=== PATIENT | female | born 1990 | race African-American/Black ===

== ENCOUNTER 2016-05-10 15:41 | Emergency (ER) | payer OTHER ==
[~2016-05-10] VITALS: Ht 157.5 cm; Wt 62.0 kg
[~2016-05-10 15:41] MED LIST: CEFT500T PO; EC-N500T7 PO; ZOFR4TAB3 SL
[2016-05-10 15:44] VITALS: BP 123/78; PULSE 90; RESP 24; TEMP 98.1; O2SAT 100
--- NOTE | 2016-05-10 16:45 | PD ---
HPI Chief Complaint: Abdominal Pain Time Seen by Provider: 16:45 Travel History International Travel<30 days: No Contact w/Intl Traveler<30days: No Traveled to known affect area: No History of Present Illness HPI 26 year-old female presents to the emergency department for evaluation right lower abdominal pain. Pain is a 10 out of 10, constant, sharp, stabbing. Patient states that she has had associated nausea, vomiting, diarrhea. She states she is only comfortable balled up in a position. Is concerned that this may be her appendix. Subjective fever and chills. Denies any urinary symptoms. Denies any chance of . Denies any other symptoms at this time. PFSH Past Medical History Anemia: Yes Bipolar Disorder: Yes Diminished Hearing: No Headaches: Yes Musculoskeletal: Yes (LEFT HUMERUS FRACTURE IN JUNE 2008) Immunizations Current: No Migraines: Yes Schizophrenia: Yes ?: Not LMP: 04/19/16 : 7 Para: 5 Miscarriage: 2 Tubal Ligation: Yes Past Surgical History Section: Yes Social History Alcohol Use: Yes (OCC) Tobacco Use: Yes (/2 PPD) Substance Use: Yes (marijuana) Allergies-Medications (Allergen,Severity, Reaction): Coded Allergies: Darvocet-N 100 (Verified Allergy, Severe, RASH, 01/10/16) Penicillin (Verified Allergy, Severe, RASH, 01/10/16) Percocet (Verified Allergy, Severe, RASH, 01/10/16) Pontocaine (Verified Allergy, Severe, NOVOCAINE -SPECIFIC, 01/10/16) Novocain (Verified Allergy, Unknown, 01/10/16) Uncoded Allergies: NOVOCAINE (Allergy, Severe, RASH, 01/27/08) Reported Meds & Prescriptions Reported Meds & Active Scripts Active Zofran ODT (Ondansetron HCl) 4 Mg Tab 4 Mg SL Q6H PRN FOR NAUSEA/VOMITING Ceftin (Cefuroxime Axetil) 500 Mg Tab 500 Mg PO BID 10 Days Naprosyn-Ec (Naproxen) 500 Mg Tab 500 Mg PO BID PRN Review of Systems Except as stated in HPI: all other systems reviewed are Neg Physical Exam Narrative GENERAL: Well-nourished female patient, balled up in a position, in no acute distress SKIN: Warm and dry. HEAD: Atraumatic. Normocephalic. EYES: Pupils equal and round. No scleral icterus. No injection or drainage. ENT: No nasal bleeding or discharge. Mucous membranes pink and moist. NECK: Trachea midline. No JVD. CARDIOVASCULAR: Regular rate and rhythm. No murmur appreciated. RESPIRATORY: No accessory muscle use. Clear to auscultation. Breath sounds equal bilaterally. GASTROINTESTINAL: Abdominal exam is limited due to patient not willing to lay flat on her back in a supine position. It does not appear distended. There is no guarding or rebound tenderness. There is tenderness elicited palpation in the right lower quadrant but again this is a limited assessment. Hepatic and splenic margins not palpable. MUSCULOSKELETAL: No obvious deformities. No clubbing. No cyanosis. No edema. NEUROLOGICAL: Awake and alert. No obvious cranial nerve deficits. Motor grossly within normal limits. Normal speech. PSYCHIATRIC: Appropriate mood and affect; insight and judgment normal. Data Data Last Documented VS Vital Signs Date Time Temp Pulse Resp B/P Pulse Ox O2 Delivery O2 Flow Rate FiO2 05/10/16 15:44 98.1 90 24 123/78 100 Room Air Orders Basic Metabolic Panel (Bmp) (05/10/16 16:44) Complete Blood Count With Diff (05/10/16 16:44) Lipase (05/10/16 16:44) Prothrombin Time / Inr (Pt) (05/10/16 16:44) Act Partial Throm Time (Ptt) (05/10/16 16:44) Urinalysis - C+S If Indicated (05/10/16 16:44) Ed Urine Pregnancytest Poc (05/10/16 16:44) Urine Culture (05/10/16 16:51) Labs Laboratory Tests Test 05/10/16 16:51 White Blood Count 8.4 TH/MM3 Red Blood Count 3.81 MIL/MM3 Hemoglobin 10.4 GM/DL Hematocrit 32.0 % Mean Corpuscular Volume 84.0 FL Mean Corpuscular Hemoglobin 27.4 PG Mean Corpuscular Hemoglobin 32.7 % Concent Red Cell Distribution Width 17.1 % Platelet Count 287 TH/MM3 Mean Platelet Volume 8.1 FL Neutrophils (%) (Auto) 63.1 % Lymphocytes (%) (Auto) 24.5 % Monocytes (%) (Auto) 9.3 % Eosinophils (%) (Auto) 2.2 % Basophils (%) (Auto) 0.9 % Neutrophils # (Auto) 5.3 TH/MM3 Lymphocytes # (Auto) 2.1 TH/MM3 Monocytes # (Auto) 0.8 TH/MM3 Eosinophils # (Auto) 0.2 TH/MM3 Basophils # (Auto) 0.1 TH/MM3 CBC Comment DIFF FINAL Differential Comment Prothrombin Time 11.1 SEC Prothromb Time International 1.0 RATIO Ratio Activated Partial 27.8 SEC Thromboplast Time Urine Color YELLOW Urine Turbidity HAZY Urine pH 7.5 Urine Specific [place] 1.013 Urine Protein 100 mg/dL Urine Glucose (UA) NEG mg/dL Urine Ketones NEG mg/dL Urine Occult Blood TRACE Urine Nitrite NEG Urine Bilirubin NEG Urine Urobilinogen 4.0 MG/DL Urine Leukocyte Esterase LARGE Urine RBC 6 /hpf Urine WBC 114 /hpf Urine WBC Clumps RARE Urine Squamous Epithelial 2 /hpf Cells Urine Bacteria RARE /hpf Urine Hyaline Casts 1 /lpf Urine Mucus FEW /lpf Microscopic Urinalysis Comment CULTURE INDICATED Sodium Level 138 MEQ/L Potassium Level 4.1 MEQ/L Chloride Level 105 MEQ/L Carbon Dioxide Level 27.4 MEQ/L Anion Gap 6 MEQ/L Blood Urea Nitrogen 9 MG/DL Creatinine 0.87 MG/DL Estimat Glomerular Filtration 94 ML/MIN Rate Random Glucose 80 MG/DL Calcium Level 9.2 MG/DL Lipase 193 U/L [facility] Medical Decision Making Medical Screen Exam Complete: Yes Emergency Medical Condition: Yes Medical Record Reviewed: Yes Differential Diagnosis Appendicitis versus colitis versus gastroenteritis versus UTI versus ectopic versus gestational versus ovarian cyst Narrative Course 26-year-old female presents to emergency department for evaluation. Patient appears without distress, however she is only comfortable lying in a position. Workup was initiated in triage. Once a medical bed becomes available , patient will be transferred and care assumed by the provider. 1712 patient is verbally aggressive out in triage towards staff and security. She tears off her wristband and leaves the emergency department. Workup has already been initiated and the patient has been seen by me prior to this. The patient at this time has eloped. Diagnosis Primary Impression: Abdominal pain Qualified Code: R10.31 - Right lower quadrant abdominal pain Disposition: 07 AGAINST MEDICAL ADVICE Condition: Stable Adriana Stiles JON May 10, 2016 16:45
[2016-05-10 17:20] LABS: BACTERIA, URINE RARE /hpf; BLOOD, URINE TRACE (NEG); COMMENT (UR) CULTURE INDICATED; CULTURE IF INDICATED CULTURE INDICATED; GLUCOSE,URINE NEG (NEG); HYALINE CAST, URINE 1 /lpf (RARE); KETONE, URINE NEG (NEG); MUCUS URINE FEW /lpf (OCC); NITRITE,URINE NEG (NEG); PH, URINE 7.5 (5.0-8.5); SQUAMOUS EPITHELIAL CELL URINE 2 /hpf (0-5); URINE COLOR YELLOW (YELLW/STRAW)
[2016-05-10 17:22] LABS: AUTOMATED NEUTROPHIL # 5.3 TH/MM3 (1.8-7.7); BASOPHIL # 0.1 TH/MM3 (0-0.2); BASOPHIL % 0.9 % (0.0-2.0); EOSINOPHIL # 0.2 TH/MM3 (0-0.4); EOSINOPHIL % 2.2 % (0.0-4.0); HEMO FLAGS DIFF FINAL; LYMPH % 24.5 % (9.0-44.0); LYMPHOCYTE # 2.1 TH/MM3 (1.0-4.8); MEAN CORPUSCULAR HEMOGLOBIN 27.4 PG (27.0-34.0); MEAN CORPUSCULAR HGB CONC 32.7 % (32.0-36.0); MONO % 9.3 % (0.0-8.0); NEUT % 63.1 % (16.0-70.0); PLATELET COUNT 287 TH/MM3 (150-450); RED BLOOD COUNT 3.81 MIL/MM3 (4.00-5.30); RED CELL DISTRIBUTION WIDTH 17.1 % (11.6-17.2); WHITE BLOOD COUNT 8.4 TH/MM3 (4.0-11.0)
[2016-05-10 17:38] LABS: BICARBONATE 27.4 MEQ/L (21.0-32.0); POTASSIUM 4.1 MEQ/L (3.5-5.1)
[2016-05-10 17:44] LABS: APTT (PATIENT) 27.8 SEC (24.3-30.1); PROTHROMBIN TIME - PATIENT 11.1 SEC (9.8-11.6)
== END 2016-05-10 17:13 | disposition left against medical advice (07) ==
LOC: NETRI 17:00
DX: R10.31 Right lower quadrant pain (principal); N39.0 Urinary tract infection, site not specified; B96.20 Unspecified Escherichia coli [E. coli] as the cause of diseases classified elsewhere
CPT/HCPCS: 80048; 81001; 83690; 85025; 85610; 85730; 87077; 87086; 87186; 99283

== ENCOUNTER 2016-11-13 08:42 | Emergency (ER) | payer OTHER ==
[2016-11-13 08:44] VITALS: BP 138/89; PULSE 78; RESP 16; TEMP 98; O2SAT 99
--- NOTE | 2016-11-13 09:36 | PD ---
HPI Chief Complaint: Oral / Dental Pain or Problem Time Seen by Provider: 09:27 Travel History International Travel<30 days: No Contact w/Intl Traveler<30days: No Traveled to known affect area: No History of Present Illness HPI 26-year-old female presents to the emergency department requesting pain medication and evaluation of her mouth after having 4 teeth extracted on Sunday. She has a follow-up appointment on Sunday with her dentist. She called her dentist telling him that she was in pain and needed a refill on pain medications and he told her to come to the emergency department. Was taking Lortab for pain but ran out of medication. Says she has ibuprofen and has been taking it but is not working. She is currently taking clindamycin. Denies fever, vomiting. Says there is a small piece of the tooth that is still in her gum and she wants it taken out. Has no other medical complaints. Symptoms are mild in severity. No other modifying factors or associated signs and symptoms. History Social History Alcohol Use: Yes (OCC) Tobacco Use: Yes (1/2 PPD) Allergies-Medications (Allergen,Severity, Reaction): Coded Allergies: oxycodone (Unverified Allergy, Severe, RASH, 11/13/16) penicillin G (Unverified Allergy, Severe, RASH, 11/13/16) propoxyphene (Unverified Allergy, Severe, RASH, 11/13/16) tetracaine (Unverified Allergy, Severe, NOVOCAINE -SPECIFIC, 11/13/16) procaine (Unverified Allergy, Unknown, 11/13/16) Uncoded Allergies: NOVOCAINE (Allergy, Severe, RASH, 01/27/08) Reported Meds & Prescriptions Reported Meds & Active Scripts Active No Active Prescriptions or Reported Medications Review of Systems Except as stated in HPI: all other systems reviewed are Neg Physical Exam Narrative GENERAL: Well-nourished, well-developed black female patient, in no acute distress; afebrile, nontoxic-appearing SKIN: Warm and dry. HEAD: Atraumatic. Normocephalic. No facial edema, erythema, tenderness on palpation. No lymphadenopathy. EYES: Pupils equal and round. No scleral icterus. No injection or drainage. ENT: Mucosa pink and moist. Airway patent. MOUTH: Mucous membranes moist, no lesions, tongue and gums appear normal. Left lower gingiva s/p tooth extraction of #20, 19, 18, 17 is mildly edematous without erythema, drainage. No signs of infection. NECK: Trachea midline. No lymphadenopathy. CARDIOVASCULAR: Regular rate. RESPIRATORY: No accessory muscle use. GASTROINTESTINAL: Flat. MUSCULOSKELETAL: No obvious deformities. No clubbing. No cyanosis. No edema. NEUROLOGICAL: Awake and alert. Oriented 3. No obvious cranial nerve deficits. Motor grossly within normal limits. Normal speech. PSYCHIATRIC: Appropriate mood and affect; insight and judgment normal. Data Data Last Documented VS Vital Signs Date Time Temp Pulse Resp B/P (MAP) Pulse Ox O2 Delivery O2 Flow Rate FiO2 11/13/16 08:44 98.0 78 16 138/89 (105) 99 MDM Medical Screen Exam Complete: Yes Emergency Medical Condition: No Differential Diagnosis Medication refill Narrative Course 18-year-old female requesting refill on Lortab after having 4 teeth extracted on Sunday. She has follow-up appointment with her dentist on Sunday. Her dentist told her come to the ER for refill on pain medications. She is currently on clindamycin. Patient is afebrile and nontoxic-appearing. Extraction site with no signs of infection. Insect patient to follow up with dentist. Vital signs are stable and the patient is stable for outpatient follow -up and treatment. The patient has no urgent or emergent medical complaints. There is no emergent or urgent medical need at this time. I instructed the patient to follow up with their primary care provider. A medical screening exam was performed: At the time of evaluation the presenting medical condition was determined not to be of an emergent nature. The patient was given the option of receiving additional care, but declined. Patient was given options for additional community resources from which to obtain care. The Patient Has Been advised to seek medical attention for their presenting complaint. The patient has been advised to return to the ER at any time if an emergent condition develops. Primary Impression: Encounter for medical screening examination Scripts No Active Prescriptions or Reported Meds Condition: Stable Aracely Garza Nov 13, 2016 09:36
== END 2016-11-13 09:41 | disposition left against medical advice (07) ==
LOC: NEPK 08:42
DX: K08.89 Other specified disorders of teeth and supporting structures (principal); F17.200 Nicotine dependence, unspecified, uncomplicated
CPT/HCPCS: 99281

== ENCOUNTER 2016-11-15 16:00 | Inpatient (IN) | payer OTHER ==
[~2016-11-15] VITALS: Ht 160 cm; Wt 68.0 kg
[2016-11-15 16:27] VITALS: BP 126/86; PULSE 75; RESP 16; TEMP 98.3; O2SAT 100
[2016-11-15 16:58] LABS: AUTOMATED NEUTROPHIL # 3.5 TH/MM3 (1.8-7.7); BASOPHIL % 0.7 % (0.0-2.0); EOSINOPHIL # 0.1 TH/MM3 (0-0.4); EOSINOPHIL % 2.2 % (0.0-4.0); HEMO FLAGS DIFF FINAL; LYMPH % 35.4 % (9.0-44.0); LYMPHOCYTE # 2.3 TH/MM3 (1.0-4.8); MEAN CELL VOLUME 81.1 FL (80.0-100.0); MEAN CORPUSCULAR HEMOGLOBIN 24.3 PG (27.0-34.0); MONO % 7.2 % (0.0-8.0); NEUT % 54.5 % (16.0-70.0); PLATELET COUNT 314 TH/MM3 (150-450); RED BLOOD COUNT 3.21 MIL/MM3 (4.00-5.30); RED CELL DISTRIBUTION WIDTH 17.3 % (11.6-17.2); WHITE BLOOD COUNT 6.4 TH/MM3 (4.0-11.0)
--- NOTE | 2016-11-15 17:01 | PD ---
HPI Chief Complaint: Psychiatric Symptoms Time Seen by Provider: 16:27 Travel History International Travel<30 days: No Contact w/Intl Traveler<30days: No Traveled to known affect area: No History of Present Illness HPI Patient is a 26-year-old female presenting to the emergency Department under Bruno act. Patient states that she called the police because she had been feeling aggravated, when she gets aggravated she gets in trouble with the police. She states that she is bipolar and schizophrenic and is off of her medications since August. Patient states that she wants to get back on her medicines. She does report a previous suicide attempt 2 years ago by wrapping a cord around her neck but denies any suicidal or homicidal ideations at this time. She reports occasional visual and auditory hallucinations but states she is not experiencing those right now. Patient had previously been on Seroquel and Ambien. She has no physical complaints at this time. 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) Immunizations Current: No Migraines: Yes Schizophrenia: Yes : 7 Para: 5 Miscarriage: 2 Tubal Ligation: Yes Past Surgical History Section: Yes Gynecologic Surgery: Yes (C-SECTON) Social History Alcohol Use: Yes (OCC) Tobacco Use: Yes (1/2 PPD) Substance Use: Yes (marijuana) Allergies-Medications (Allergen,Severity, Reaction): Coded Allergies: oxycodone (Unverified Allergy, Severe, RASH, 11/13/16) penicillin G (Unverified Allergy, Severe, RASH, 11/13/16) propoxyphene (Unverified Allergy, Severe, RASH, 11/13/16) tetracaine (Unverified Allergy, Severe, NOVOCAINE -SPECIFIC, 11/13/16) procaine (Unverified Allergy, Unknown, 11/13/16) Uncoded Allergies: NOVOCAINE (Allergy, Severe, RASH, 01/27/08) Reported Meds & Prescriptions Reported Meds & Active Scripts Active Reported Seroquel (Quetiapine Fumarate) 25 Mg Tab 10 Mg PO DAILY Review of Systems Except as stated in HPI: all other systems reviewed are Neg Psychiatric: Positive: Mood Disorder Physical Exam Narrative GENERAL: Well-developed, well-nourished, alert female. Resting comfortably in no acute distress. SKIN: Warm and dry. HEAD: Atraumatic. Normocephalic. EYES: Pupils equal and round. No scleral icterus. No injection or drainage. ENT: No nasal bleeding or discharge. Mucous membranes pink and moist. NECK: Trachea midline. No JVD. CARDIOVASCULAR: Regular rate and rhythm. RESPIRATORY: No accessory muscle use. Clear to auscultation. Breath sounds equal bilaterally. GASTROINTESTINAL: Abdomen soft, non-tender, nondistended. Hepatic and splenic margins not palpable. MUSCULOSKELETAL: Extremities without clubbing, cyanosis, or edema. No obvious deformities. NEUROLOGICAL: Awake and alert. No obvious cranial nerve deficits. Motor grossly within normal limits. Five out of 5 muscle strength in the arms and legs. Normal speech. PSYCHIATRIC: Appropriate mood and affect; insight and judgment normal. Data Data Last Documented VS Vital Signs Date Time Temp Pulse Resp B/P (MAP) Pulse Ox O2 Delivery O2 Flow Rate FiO2 11/15/16 17:43 62 18 140/55 (83) 98 Room Air 11/15/16 16:27 98.3 Orders Orders Complete Blood Count With Diff (11/15/16 16:29) Comprehensive Metabolic Panel (11/15/16 16:29) Urinalysis - C+S If Indicated (11/15/16 16:29) Psych Screen (11/15/16 16:29) Drug Screen, Random Urine (11/15/16 16:29) Ed Urine Pregnancytest Poc (11/15/16 16:56) Diet Regular Basic (11/15/16 Dinner) Labs Laboratory Tests Test 11/15/16 16:49 11/15/16 16:53 White Blood Count 6.4 TH/MM3 Red Blood Count 3.21 MIL/MM3 Hemoglobin 7.8 GM/DL Hematocrit 26.0 % Mean Corpuscular Volume 81.1 FL Mean Corpuscular Hemoglobin 24.3 PG Mean Corpuscular Hemoglobin Concent 30.0 % Red Cell Distribution Width 17.3 % Platelet Count 314 TH/MM3 Mean Platelet Volume 7.4 FL Neutrophils (%) (Auto) 54.5 % Lymphocytes (%) (Auto) 35.4 % Monocytes (%) (Auto) 7.2 % Eosinophils (%) (Auto) 2.2 % Basophils (%) (Auto) 0.7 % Neutrophils # (Auto) 3.5 TH/MM3 Lymphocytes # (Auto) 2.3 TH/MM3 Monocytes # (Auto) 0.5 TH/MM3 Eosinophils # (Auto) 0.1 TH/MM3 Basophils # (Auto) 0.0 TH/MM3 CBC Comment DIFF FINAL Differential Comment Blood Urea Nitrogen 9 MG/DL Creatinine 0.75 MG/DL Random Glucose 71 MG/DL Total Protein 7.0 GM/DL Albumin 3.3 GM/DL Calcium Level 8.3 MG/DL Alkaline Phosphatase 33 U/L Aspartate Amino Transf (AST/SGOT) 12 U/L Alanine Aminotransferase (ALT/SGPT) 18 U/L Total Bilirubin 0.4 MG/DL Sodium Level 143 MEQ/L Potassium Level 3.5 MEQ/L Chloride Level 108 MEQ/L Carbon Dioxide Level 29.2 MEQ/L Anion Gap 6 MEQ/L Estimat Glomerular Filtration Rate 111 ML/MIN Urine Color YELLOW Urine Turbidity CLOUDY Urine pH 8.0 Urine Specific [place] 1.020 Urine Protein TRACE mg/dL Urine Glucose (UA) NEG mg/dL Urine Ketones NEG mg/dL Urine Occult Blood NEG Urine Nitrite NEG Urine Bilirubin NEG Urine Urobilinogen 2.0 MG/DL Urine Leukocyte Esterase NEG Urine WBC 4 /hpf Urine Squamous Epithelial Cells 4 /hpf Urine Amorphous Sediment RARE Urine Bacteria RARE /hpf Microscopic Urinalysis Comment CULT NOT INDICATED Urine Opiates Screen NEG Urine Barbiturates Screen NEG Urine Amphetamines Screen NEG Urine Benzodiazepines Screen NEG Urine Cocaine Screen NEG Urine Cannabinoids Screen POS [facility] Medical Decision Making Medical Screen Exam Complete: Yes Emergency Medical Condition: Yes Interpretation(s) Laboratory Tests Test 11/15/16 16:49 11/15/16 16:53 White Blood Count 6.4 TH/MM3 Red Blood Count 3.21 MIL/MM3 Hemoglobin 7.8 GM/DL Hematocrit 26.0 % Mean Corpuscular Volume 81.1 FL Mean Corpuscular Hemoglobin 24.3 PG Mean Corpuscular Hemoglobin Concent 30.0 % Red Cell Distribution Width 17.3 % Platelet Count 314 TH/MM3 Mean Platelet Volume 7.4 FL Neutrophils (%) (Auto) 54.5 % Lymphocytes (%) (Auto) 35.4 % Monocytes (%) (Auto) 7.2 % Eosinophils (%) (Auto) 2.2 % Basophils (%) (Auto) 0.7 % Neutrophils # (Auto) 3.5 TH/MM3 Lymphocytes # (Auto) 2.3 TH/MM3 Monocytes # (Auto) 0.5 TH/MM3 Eosinophils # (Auto) 0.1 TH/MM3 Basophils # (Auto) 0.0 TH/MM3 CBC Comment DIFF FINAL Differential Comment Blood Urea Nitrogen 9 MG/DL Creatinine 0.75 MG/DL Random Glucose 71 MG/DL Total Protein 7.0 GM/DL Albumin 3.3 GM/DL Calcium Level 8.3 MG/DL Alkaline Phosphatase 33 U/L Aspartate Amino Transf (AST/SGOT) 12 U/L Alanine Aminotransferase (ALT/SGPT) 18 U/L Total Bilirubin 0.4 MG/DL Sodium Level 143 MEQ/L Potassium Level 3.5 MEQ/L Chloride Level 108 MEQ/L Carbon Dioxide Level 29.2 MEQ/L Anion Gap 6 MEQ/L Estimat Glomerular Filtration Rate 111 ML/MIN Urine Color YELLOW Urine Turbidity CLOUDY Urine pH 8.0 Urine Specific [place] 1.020 Urine Protein TRACE mg/dL Urine Glucose (UA) NEG mg/dL Urine Ketones NEG mg/dL Urine Occult Blood NEG Urine Nitrite NEG Urine Bilirubin NEG Urine Urobilinogen 2.0 MG/DL Urine Leukocyte Esterase NEG Urine WBC 4 /hpf Urine Squamous Epithelial Cells 4 /hpf Urine Amorphous Sediment RARE Urine Bacteria RARE /hpf Microscopic Urinalysis Comment CULT NOT INDICATED Urine Opiates Screen NEG Urine Barbiturates Screen NEG Urine Amphetamines Screen NEG Urine Benzodiazepines Screen NEG Urine Cocaine Screen NEG Urine Cannabinoids Screen POS Vital Signs Date Time Temp Pulse Resp B/P (MAP) Pulse Ox O2 Delivery O2 Flow Rate FiO2 11/15/16 16:27 98.3 75 16 126/86 (99) 100 Room Air Differential Diagnosis Mood disorder versus substance abuse versus schizophrenia versus bipolar disorder versus other Narrative Course Patient is a 26-year-old female presenting to emergency department under Bruno act. Patient's vital signs are stable, she is resting comfortably. Patient is cooperative and alert in the emergency department. Mental health screening discussed with the patient. Psychiatric screen ordered. Meal tray has been ordered. CBC with a hemoglobin of 7.8 and 26, this is consistent with previous lab values , patient denies any vaginal bleeding or dark tarry-like stools. Chemistry no acute findings Urine drug screen is positive for marijuana Urinalysis unremarkable Patient is medically cleared for psychiatric evaluation at this time. Diagnosis Primary Impression: Medical clearance for psychiatric admission Additional Impression: Anemia Qualified Codes: D64.9 - Anemia, unspecified Condition: Stable Oly Torres Nov 15, 2016 17:01
[2016-11-15] MEDS ORDERED: SERO25TA PO (17:08)
[2016-11-15 17:11] LABS: ANION GAP 6 MEQ/L (5-15); AST (GOT) 12 U/L (15-37); BICARBONATE 29.2 MEQ/L (21.0-32.0); BLOOD UREA NITROGEN 9 MG/DL (7-18); CHLORIDE 108 MEQ/L (98-107); GLOMERULAR FILTRATION RATE 111 ML/MIN (>89); POTASSIUM 3.5 MEQ/L (3.5-5.1); SODIUM (NA) 143 MEQ/L (136-145)
[2016-11-15 17:12] LABS: ALT (GPT) 18 U/L (10-53)
[2016-11-15 17:15] LABS: ALKALINE PHOSPHATASE 33 U/L (45-117); TOTAL BILIRUBIN ADULT 0.4 MG/DL (0.2-1.0)
[2016-11-15 17:19] LABS: BACTERIA, URINE RARE /hpf; BLOOD, URINE NEG (NEG); COMMENT (UR) CULT NOT INDICATED; CULTURE IF INDICATED CULT NOT INDICATED; GLUCOSE,URINE NEG (NEG); KETONE, URINE NEG (NEG); NITRITE,URINE NEG (NEG); SQUAMOUS EPITHELIAL CELL URINE 4 /hpf (0-5); URINE COLOR YELLOW (YELLW/STRAW)
[2016-11-15 17:43] VITALS: BP 140/55; PULSE 62; RESP 18; O2SAT 98
[2016-11-15 22:00] VITALS: BP 118/61; PULSE 63; RESP 17; O2SAT 98
[2016-11-15] MEDS ORDERED: diphenhydrAMINE HCL 50 MG CAP PO ONE (23:00)
[2016-11-16 02:45] VITALS: BP 118/67; PULSE 58; RESP 18; TEMP 98.4; O2SAT 99
[2016-11-16] MEDS ORDERED: MAGNESIUM HYDROXIDE SUSP 30 ML CUP PO PRN (03:00)
[2016-11-16] MEDS ORDERED: diphenhydrAMINE HCL 50 MG/ML VIAL - HS PRN IM (03:00)
[2016-11-16] MEDS ORDERED: ACETAMINOPHEN 325 MG TAB PO PRN (03:00)
[2016-11-16] MEDS ORDERED: ALUMINUM/MAGNESIUM/SIMETH 30 ML CUP PO PRN (03:00)
[2016-11-16] MEDS ORDERED: LORazepam 2 MG/ML VIAL IM PRN (03:00)
[2016-11-16] MEDS ORDERED: diphenhydrAMINE HCL 50 MG CAP - HS PRN PO (03:00)
[2016-11-16] MEDS ORDERED: LORazepam 1 MG TAB PO PRN (03:00)
[2016-11-16 05:48] VITALS: BP 112/62; PULSE 63; RESP 18; TEMP 97.1; O2SAT 95
[2016-11-16 05:53] VITALS: BP 145/64; PULSE 73; RESP 18; TEMP 97.6; O2SAT 98
[2016-11-16] MEDS ORDERED: NICOTINE 21 MG/24 HR PATCH T-DERMAL SCH (09:00)
[2016-11-16] MEDS ORDERED: QUEtiapine FUMARATE 25 MG TAB PO SCH (09:00)
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
[2016-11-16] MEDS ORDERED: QUET1TAB7 PO (10:40)
--- NOTE | 2016-11-16 10:40 | HHI.DS ---
Psychiatry Discharge Summary Advance Directive: No Reason Not Provided: doesnt want Mental Health AdvanceDirective: No Admission Admission Date Nov 16, 2016 at 00:44 Admission Diagnosis: Tobacco Use In Past 30 Days: 5 or More Cigarettes/Day Alcohol Use: Never Results Blood Pressure 145 / 64 Vital Signs Date Time Temp Pulse Resp B/P (MAP) Pulse Ox O2 Delivery O2 Flow Rate FiO2 11/16/16 05:53 97.6 73 18 145/64 (91) 98 11/15/16 22:00 Room Air Laboratory Tests Test 11/15/16 16:49 11/15/16 16:53 Red Blood Count 3.21 MIL/MM3 (4.00-5.30) Hemoglobin 7.8 GM/DL (11.6-15.3) Hematocrit 26.0 % (35.0-46.0) Mean Corpuscular Hemoglobin 24.3 PG (27.0-34.0) Mean Corpuscular Hemoglobin Concent 30.0 % (32.0-36.0) Red Cell Distribution Width 17.3 % (11.6-17.2) Random Glucose 71 MG/DL (74-106) Albumin 3.3 GM/DL (3.4-5.0) Calcium Level 8.3 MG/DL (8.5-10.1) Alkaline Phosphatase 33 U/L (45-117) Aspartate Amino Transf (AST/SGOT) 12 U/L (15-37) Chloride Level 108 MEQ/L (98-107) Urine Turbidity CLOUDY (CLEAR) Urine Bacteria RARE /hpf (NONE) Urine Cannabinoids Screen POS (NEG) Medications Approp Antipsych med options 1 - Minimum of three failed multiple trials of monotherapy. 2 - Documented plan to taper to monotherapy due to previous use of multiple meds OR cross-taper in progress at D/C. 3 - Documentation of augmentation of Clozapine. 4 - Justification other than those listed in allowable values 1-3, document here : Discharge Discharge Disposition: Discharge Home Discharge Instructions Diet Instructions: As Tolerated, No Restrictions Activities you can perform: Weight Bearing as Liane Discharge/Advance Care Plan Goals to promote your health * To prevent worsening of your condition and complications * To maintain your health at the optimal level Directions to meet your goals Take your medications as prescribed Follow your dietary instruction Follow activity as directed Keep your appointments as scheduled Take your immunizations and boosters as scheduled If your symptoms worsen call your PCP, if no PCP go to Urgent Care Center or Emergency Room For 09/10 questions related to your inpatient stay or results of tests pending at discharge, please contact Dr. Luis Rogers at Smoking is Dangerous to Your Health. Avoid second hand smoking Luis Rogers MD Nov 16, 2016 10:40
[2016-11-16] MEDS ORDERED: REMOVE OLD NICOTINE PATCH T-DERMAL SCH (21:00)
== END 2016-11-16 12:50 | disposition home or self-care (01) | DRG 882 ==
LOC: NEPD 16:00 → NEDA 11-16 00:44 → H270 11-16 02:30
PROVIDERS: ADMIT Psychiatry & Neurology Psychiatry; ATTEND Psychiatry & Neurology Psychiatry
DX: F43.20 Adjustment disorder, unspecified (principal); F20.9 Schizophrenia, unspecified; D64.9 Anemia, unspecified; F17.210 Nicotine dependence, cigarettes, uncomplicated; F12.10 Cannabis abuse, uncomplicated; Z62.810 Personal history of physical and sexual abuse in childhood; Z91.5 Personal history of self-harm; F31.9 Bipolar disorder, unspecified
CPT/HCPCS: 80053; 80307; 81001; 84703; 85025; 99285; Q0163

== ENCOUNTER 2017-03-05 14:14 | Emergency (ER) | payer OTHER ==
[~2017-03-05] VITALS: Ht 157.5 cm; Wt 68.2 kg
[~2017-03-05 14:14] MED LIST changes: -CEFT500T PO; -EC-N500T7 PO; +QUET1TAB7 PO; -ZOFR4TAB3 SL
[2017-03-05 14:19] VITALS: BP 102/60; PULSE 104; RESP 20; TEMP 101.9; O2SAT 98
--- NOTE | 2017-03-05 15:44 | PD ---
HPI Chief Complaint: Flank/Kidney Pain Time Seen by Provider: 15:30 Travel History International Travel<30 days: No Contact w/Intl Traveler<30days: No Traveled to known affect area: No History of Present Illness HPI Patient is a 27-year-old female who presents to emergency room with complaints of left sided flank pain which has been ongoing since yesterday afternoon. She reports that she is constant left-sided flank pain since yesterday, patient reports that the flank pain does return groin. Patient reports that her flank pain is associated with dysuria, urinary frequency. Patient denies any urgency or hematuria. Patient reports that she has had kidney stones in the past, she was diagnosed with a "big stone" last year - reports that she passed the stone by herself. Patient reports that she has not followed-up with urology, she has had no urological interventions in the past. Patient reports that she also has been having fevers and chills with her symptoms. Patient with nausea with no vomiting. Patient reports that she has not been able to eat anything since yesterday afternoon. Denies constipation or diarrhea. PFSH Past Medical History Anemia: Yes Bipolar Disorder: Yes Anxiety: No Depression: No Cancer: No Cardiovascular Problems: No Diminished Hearing: No Endocrine: No Genitourinary: No Headaches: Yes Immune Disorder: No Musculoskeletal: No Neurologic: No Psychiatric: Yes Reproductive: No Respiratory: No Immunizations Current: No Migraines: Yes Schizophrenia: Yes Thyroid Disease: No ?: Not LMP: on now : 7 Para: 5 Miscarriage: 2 Tubal Ligation: Yes Past Surgical History Section: Yes Gynecologic Surgery: Yes (C-SECTON) Social History Alcohol Use: Yes (OCC) Tobacco Use: Yes (1/2 PPD) Substance Use: Yes (marijuana) Allergies-Medications (Allergen,Severity, Reaction): Coded Allergies: oxycodone (Unverified Allergy, Severe, RASH, 11/13/16) penicillin G (Unverified Allergy, Severe, RASH, 11/13/16) propoxyphene (Unverified Allergy, Severe, RASH, 11/13/16) tetracaine (Unverified Allergy, Severe, NOVOCAINE -SPECIFIC, 11/13/16) procaine (Unverified Allergy, Unknown, 11/13/16) Uncoded Allergies: NOVOCAINE (Allergy, Severe, RASH, 01/27/08) Reported Meds & Prescriptions Reported Meds & Active Scripts Active Quetiapine (Quetiapine Fumarate) 25 Mg Tab 50 Mg PO BID 15 Days Review of Systems General / Constitutional: Positive: Fever, Chills Eyes: No: Visual changes HENT: No: Headaches Cardiovascular: No: Chest Pain or Discomfort Respiratory: No: Shortness of Breath Gastrointestinal: Positive: Nausea, No: Vomiting, Abdominal Pain Genitourinary: Positive: Dysuria, Flank Pain Musculoskeletal: No: Pain Skin: No Rash Neurologic: No: Weakness Psychiatric: No: Depression Endocrine: No: Polydipsia Hematologic/Lymphatic: No: Easy Bruising Physical Exam Narrative GENERAL: Moderate distress SKIN: Focused skin assessment warm/dry. HEAD: Atraumatic. Normocephalic. EYES: Pupils equal and round. No scleral icterus. No injection or drainage. ENT: No nasal bleeding or discharge. Mucous membranes pink and moist. NECK: Trachea midline. No JVD. CARDIOVASCULAR: Tachycardia. No murmur appreciated. RESPIRATORY: No accessory muscle use. Clear to auscultation. Breath sounds equal bilaterally. GASTROINTESTINAL: Abdomen soft, non-tender, nondistended. Hepatic and splenic margins not palpable. MUSCULOSKELETAL: No obvious deformities. No clubbing. No cyanosis. No edema. Patient with left-sided flank pain NEUROLOGICAL: Awake and alert. No obvious cranial nerve deficits. Motor grossly within normal limits. Normal speech. PSYCHIATRIC: Appropriate mood and affect; insight and judgment normal. Data Data Last Documented VS Vital Signs Date Time Temp Pulse Resp B/P (MAP) Pulse Ox O2 Delivery O2 Flow Rate FiO2 03/05/17 14:19 101.9 104 20 102/60 (74) 98 Orders Orders Complete Blood Count With Diff (03/05/17 14:27) Comprehensive Metabolic Panel (03/05/17 14:27) Urinalysis - C+S If Indicated (03/05/17 14:27) Ed Urine Pregnancytest Poc (03/05/17 14:27) Lactic Acid Sepsis Protocol (03/05/17 14:27) Influenzae A/B Antigen (03/05/17 15:31) Blood Culture (03/05/17 15:31) Sodium Chlor 0.9% 1000 Ml Inj (Ns 1000 M (03/05/17 15:45) Sodium Chlor 0.9% 1000 Ml Inj (Ns 1000 M (03/05/17 15:45) Ketorolac Inj (Toradol Inj) (03/05/17 15:45) Levofloxacin 750 Mg Premix Inj (Levaquin (03/05/17 15:45) MDM Medical Decision Making Medical Screen Exam Complete: Yes Emergency Medical Condition: Yes Medical Record Reviewed: Yes Interpretation(s) Vital Signs Date Time Temp Pulse Resp B/P (MAP) Pulse Ox O2 Delivery O2 Flow Rate FiO2 03/05/17 14:19 101.9 104 20 102/60 (74) 98 Differential Diagnosis Kidney stones, pyelonephritis, cystitis, gastritis, gastroenteritis Narrative Course Patient is a 27-year-old female presents to emergency room with complaints of left sided flank pain which has been ongoing since yesterday. Patient has history of kidney stones in the past, she has never required any urological interventions for her kidney stones as she has passed them by herself. Patient presents the emergency room tachycardic and febrile, sepsis protocol was initiated. Patient was given a dose of IV Rocephin as symptoms are most likely urinary symptoms During the course of the patients emergency department visit, the patients history, examination, and differential diagnosis were reviewed with the patient. The patient was placed on a echo technologist with oximetry and frequent blood pressure monitoring. The patient had a 20 gauge IV access obtained and blood work sent for analysis. The patient was initially provided IVF, IV toradol, IV Rocephin. The patients laboratory studies were reviewed and remarkable for [-]. Radiology studies were reviewed and remarkable for [-] Yuridia Greco DO Mar 05, 2017 15:44
[2017-03-05] MEDS ORDERED: SODIUM CHLOR 0.9% 1000 ML INJ 1,000 ML IV ONE ×2 (15:45)
[2017-03-05] MEDS ORDERED: KETOROLAC TROMETHAMINE 30 MG/ML (IVP) VIAL IV PUSH ONE (15:45)
[2017-03-05] MEDS ORDERED: LEVOFLOXACIN 750 MG PREMIX INJ 150 ML IV ONE (15:45)
[2017-03-05 16:12] LABS: AUTOMATED NEUTROPHIL # 11.9 TH/MM3 (1.8-7.7); BASOPHIL % 0.2 % (0.0-2.0); HEMATOCRIT 26.2 % (35.0-46.0); HEMOGLOBIN 8.3 GM/DL (11.6-15.3); LYMPH % 4.1 % (9.0-44.0); LYMPHOCYTE # 0.6 TH/MM3 (1.0-4.8); MEAN CELL VOLUME 80.8 FL (80.0-100.0); MEAN CORPUSCULAR HEMOGLOBIN 25.7 PG (27.0-34.0); MEAN CORPUSCULAR HGB CONC 31.8 % (32.0-36.0); MEAN PLATELET VOLUME 7.9 FL (7.0-11.0); MONO % 10.9 % (0.0-8.0); MONOCYTE # 1.5 TH/MM3 (0-0.9); NEUT % 84.8 % (16.0-70.0); PLATELET COUNT 279 TH/MM3 (150-450); RED BLOOD COUNT 3.24 MIL/MM3 (4.00-5.30); RED CELL DISTRIBUTION WIDTH 19.4 % (11.6-17.2)
[2017-03-05 16:30] LABS: ALBUMIN 3.7 GM/DL (3.4-5.0); ALT (GPT) 14 U/L (10-53); AST (GOT) 16 U/L (15-37); BICARBONATE 23.2 MEQ/L (21.0-32.0); BLOOD UREA NITROGEN 7 MG/DL (7-18); CALCIUM 8.7 MG/DL (8.5-10.1); CHLORIDE 100 MEQ/L (98-107); CREATININE 0.71 MG/DL (0.50-1.00); GLOMERULAR FILTRATION RATE 118 ML/MIN (>89); GLUCOSE,RANDOM 86 MG/DL (74-106); SODIUM (NA) 132 MEQ/L (136-145)
[2017-03-05 16:31] LABS: ALKALINE PHOSPHATASE 43 U/L (45-117); TOTAL BILIRUBIN ADULT 0.7 MG/DL (0.2-1.0); TOTAL PROTEIN 8.3 GM/DL (6.4-8.2)
[2017-03-05] MEDS ORDERED: MORPHINE SULFATE 4 MG/ML INJ IV PUSH ONE (16:45)
[2017-03-05 17:10] LABS: BACTERIA, URINE MANY /hpf; BILIRUBIN, URINE NEG (NEG); BLOOD, URINE LARGE (NEG); GLUCOSE,URINE NEG (NEG); HYALINE CAST, URINE 2 /lpf (RARE); KETONE, URINE 40 mg/dL (NEG); MUCUS URINE MOD /lpf (OCC); NITRITE,URINE NEG (NEG); PH, URINE 6.5 (5.0-8.5); SQUAMOUS EPITHELIAL CELL URINE 3 /hpf (0-5); URINE COLOR YELLOW (YELLW/STRAW); URINE LEUKOCYTE ESTERASE MOD (NEG); WHITE BLOOD CELL CLUMPS RARE
--- NOTE | 2017-03-05 17:41 | RADRPT ---
EXAM DATE/TIME: 03/05/2017 17:17 [facility] COMPARISON: No previous studies available for comparison. INDICATIONS : Left flank pain for two days,history of nephroliathsis. ORAL CONTRAST: No oral contrast ingested. RADIATION DOSE: 5.32 CTDIvol (mGy) MEDICAL HISTORY : nephroliathsis,anemia SURGICAL HISTORY : section. ENCOUNTER: Initial ACUITY: 2 days PAIN SCALE: 10/10 LOCATION: Left Abdomen TECHNIQUE: Volumetric scanning of the abdomen and pelvis was performed. Using automated exposure control and ad justment of the mA and/or kV according to patient size, radiation dose was kept as low as reasonably achievable to obtain optimal diagnostic quality images. DICOM format image data is available electro nically for review and comparison. FINDINGS: LOWER LUNGS: The visualized lower lungs are clear. LIVER: Homogeneous density without lesion. There is no dilation of the biliary tree. No calcified gallston es. SPLEEN: Normal size without lesion. PANCREAS: Within normal limits. KIDNEYS: There is a grouping of 2-4 mm calcified calculi in an inferior pole calyx on the left. There is a 3 m m calcified calculus in the inferior pole calyx on the right. No significant hydronephrosis. No signi ficant contour deforming renal abnormality. There are punctate calcifications in the pelvis near the root region of the UVJ. Suspect these are outside the ureters and likely reflect phleboliths. However evaluation is significantly limited due to technique and lack of sufficient intraperitoneal fat. ADRENAL GLANDS: Within normal limits. VASCULAR: There is no aortic aneurysm. BOWEL/MESENTERY: The stomach, small bowel, and colon demonstrate no acute abnormality. There is no free intraperitone al air or fluid. ABDOMINAL WALL: Within normal limits. RETROPERITONEUM: There is no lymphadenopathy. BLADDER: Largely decompressed without a definite intraluminal calcified calculus. REPRODUCTIVE: Within normal limits. INGUINAL: There is no lymphadenopathy or hernia. MUSCULOSKELETAL: Within normal limits for patient age. CONCLUSION: 1. Nonobstructing bilateral inferior pole renal calyceal calculi measuring 2-4 mm. 2. Punctate bilateral calcifications near the pelvis are likely phleboliths also definitive localizat ion is difficult. Khang Conley MD on March 05, 2017 at 17:35 Board Certified Radiologist. This report was verified electronically.
[2017-03-05] MEDS ORDERED: ONDANSETRON HCL 4 MG/2 ML VIAL IV PUSH ONE (17:45)
[2017-03-05] MEDS ORDERED: ACETAMINOPHEN/HYDROcodone 325 MG/5 MG TAB PO ONE (18:30)
[2017-03-05] MEDS ORDERED: CIPR-9 PO (18:53)
[2017-03-05] MEDS ORDERED: NORC5TAB PO (18:53)
[2017-03-05] MEDS ORDERED: ZOFR4TAB3 SL (18:53)
--- NOTE | 2017-03-05 18:53 | PD ---
Physical Exam Narrative Patient signed out to me by Dr. Greco. Please see her documentation for complete details. Patient is a 27-year-old female who comes in complaining of left flank pain. Exam shows left CVA tenderness. Data Data Last Documented VS Vital Signs Date Time Temp Pulse Resp B/P (MAP) Pulse Ox O2 Delivery O2 Flow Rate FiO2 03/05/17 14:19 101.9 104 20 102/60 (74) 98 Orders Orders Complete Blood Count With Diff (03/05/17 14:27) Comprehensive Metabolic Panel (03/05/17 14:27) Urinalysis - C+S If Indicated (03/05/17 14:27) Ed Urine Pregnancytest Poc (03/05/17 14:27) Lactic Acid Sepsis Protocol (03/05/17 14:27) Influenzae A/B Antigen (03/05/17 15:31) Blood Culture (03/05/17 15:31) Sodium Chlor 0.9% 1000 Ml Inj (Ns 1000 M (03/05/17 15:45) Sodium Chlor 0.9% 1000 Ml Inj (Ns 1000 M (03/05/17 15:45) Ketorolac Inj (Toradol Inj) (03/05/17 15:45) Levofloxacin 750 Mg Premix Inj (Levaquin (03/05/17 15:45) Morphine Inj (Morphine Inj) (03/05/17 16:45) Ct Abd/Pel W/O Iv Contrast (03/05/17 16:49) Urine Culture (03/05/17 15:50) Ondansetron Inj (Zofran Inj) (03/05/17 17:45) Acetamin-Hydrocod 325-5 Mg ([place] 5-325 (03/05/17 18:30) Labs Laboratory Tests Test 03/05/17 15:50 03/05/17 15:55 Urine Color YELLOW Urine Turbidity HAZY Urine pH 6.5 Urine Specific [place] 1.018 Urine Protein 100 mg/dL Urine Glucose (UA) NEG mg/dL Urine Ketones 40 mg/dL Urine Occult Blood LARGE Urine Nitrite NEG Urine Bilirubin NEG Urine Urobilinogen 4.0 MG/DL Urine Leukocyte Esterase MOD Urine RBC 23 /hpf Urine WBC 69 /hpf Urine WBC Clumps RARE Urine Squamous Epithelial Cells 3 /hpf Urine Bacteria MANY /hpf Urine Hyaline Casts 2 /lpf Urine Mucus MOD /lpf Microscopic Urinalysis Comment CULTURE INDICATED White Blood Count 14.0 TH/MM3 Red Blood Count 3.24 MIL/MM3 Hemoglobin 8.3 GM/DL Hematocrit 26.2 % Mean Corpuscular Volume 80.8 FL Mean Corpuscular Hemoglobin 25.7 PG Mean Corpuscular Hemoglobin Concent 31.8 % Red Cell Distribution Width 19.4 % Platelet Count 279 TH/MM3 Mean Platelet Volume 7.9 FL Neutrophils (%) (Auto) 84.8 % Lymphocytes (%) (Auto) 4.1 % Monocytes (%) (Auto) 10.9 % Eosinophils (%) (Auto) 0.0 % Basophils (%) (Auto) 0.2 % Neutrophils # (Auto) 11.9 TH/MM3 Lymphocytes # (Auto) 0.6 TH/MM3 Monocytes # (Auto) 1.5 TH/MM3 Eosinophils # (Auto) 0.0 TH/MM3 Basophils # (Auto) 0.0 TH/MM3 CBC Comment DIFF FINAL Differential Comment Blood Urea Nitrogen 7 MG/DL Creatinine 0.71 MG/DL Random Glucose 86 MG/DL Total Protein 8.3 GM/DL Albumin 3.7 GM/DL Calcium Level 8.7 MG/DL Alkaline Phosphatase 43 U/L Aspartate Amino Transf (AST/SGOT) 16 U/L Alanine Aminotransferase (ALT/SGPT) 14 U/L Total Bilirubin 0.7 MG/DL Sodium Level 132 MEQ/L Potassium Level 3.5 MEQ/L Chloride Level 100 MEQ/L Carbon Dioxide Level 23.2 MEQ/L Anion Gap 9 MEQ/L Estimat Glomerular Filtration Rate 118 ML/MIN Lactic Acid Level 0.6 mmol/L MDM Supervised Visit with [facility]: No Narrative Course CT abdomen and pelvis shows nonobstructing stones. Urinalysis is positive for UTI. Patient's symptoms likely due to pyelonephritis. She is given a [place]. She'll be discharged with prescriptions for Cipro and pain medicine. Advised drink plenty of fluids. Referral placed to urology. Advised to return to the ED as needed for any worsening symptoms. Diagnosis Primary Impression: Pyelonephritis Additional Impression: Renal stone Referrals: Robel Rahman MD call for appointment Patient Instructions: General Instructions, Kidney Infection (ED), Kidney Stones (ED) Additional Instruction: Drink plenty of fluids. Take all of the antibiotic. Follow-up with urology. Take pain medicine as needed. Scripts Ciprofloxacin (Cipro) 500 Mg Tab 500 MG PO BID for Infection for 14 Days, #28 TAB 0 Refills Prov: Elyse Montilla MD 03/05/17 Hydrocodone-Acetaminophen ([place]) 5 Mg-325 Mg Tab 1 TAB PO Q6H Y for PAIN, #15 TAB 0 Refills Prov: Elyse Montilla MD 03/05/17 Ondansetron Odt (Zofran Odt) 4 Mg Tab 4 MG SL Q6HR Y for Nausea/Vomiting, #12 TAB 0 Refills Prov: Elyse Montilla MD 03/05/17 Disposition: 01 DISCHARGE HOME Condition: Stable Elyse Montilla MD Mar 05, 2017 18:53
[2017-03-05 19:06] VITALS: BP 98/57; PULSE 93; RESP 17; TEMP 100.8; O2SAT 95
== END 2017-03-05 19:37 | disposition home or self-care (01) ==
LOC: NEPD 14:14
DX: N12 Tubulo-interstitial nephritis, not specified as acute or chronic (principal); B96.20 Unspecified Escherichia coli [E. coli] as the cause of diseases classified elsewhere; N20.0 Calculus of kidney; F17.200 Nicotine dependence, unspecified, uncomplicated
CPT/HCPCS: 74176; 80053; 81001; 83605; 84703; 85025; 87040; 87077; 87086; 87186; 87804; 96361; 96365; 96375; 99285; J1885; J1956; J2270; J2405; J7030